=== PATIENT | female | born 1970 | race Caucasian/White ===

== ENCOUNTER → 2019-05-08 | Outpatient (CLI) | payer BC | END | disposition home or self-care (01) | LOC: LAB 11:12 | PROVIDERS: ATTEND Internal Medicine | DX: Z00.00 Encounter for general adult medical examination without abnormal findings (principal) | CPT/HCPCS: 71045; 80053; 80061; 81003; 84443; 85025; 85651; 86140; 93005 ==

== ENCOUNTER → 2019-06-25 | Outpatient (CLI) | payer BC ==
[~2019-06-25] MED LIST: IOHEXOL 300MG/ML 150 ML BTL ONE; SOD CHLORIDE 0.9% 100 ML ONE
== END | disposition home or self-care (01) ==
LOC: LAB 12:01
PROVIDERS: ATTEND Emergency Medicine
DX: R22.0 Localized swelling, mass and lump, head (principal)
CPT/HCPCS: 70470; 70480; 80053; 85025; Q9967

== ENCOUNTER → 2019-07-03 | Outpatient (CLI) | payer BC | END | disposition home or self-care (01) | LOC: LAB 14:24 | PROVIDERS: ATTEND Neurological Surgery | DX: R22.0 Localized swelling, mass and lump, head (principal) | CPT/HCPCS: 82533; 84146; 84305 ==